=== PATIENT | male | born 1980 | race African-American/Black ===

== ENCOUNTER 2025-08-16 09:04 | Emergency (ER) | payer OTHER ==
[~2025-08-16] VITALS: Ht 177.8 cm; Wt 83.0 kg
[2025-08-16 09:12] VITALS: O2SAT 97
[2025-08-16] MEDS ORDERED: KETOROLAC 30MG/ML VIAL IM ONE (10:15)
[2025-08-16] MEDS ORDERED: ACETAMINOPHEN 325MG TABLET PO ONE (10:15)
[2025-08-16] MEDS ORDERED: PENICILLIN G BENZATHINE 1,200,000 UNITS/2ML SYR IM ONE (10:30)
[2025-08-16] MEDS ORDERED: DEXAMETHASONE 10 MG/ML VIAL IM ONE (10:30)
[2025-08-16] MEDS: ACETAMINOPHEN 500MG TABLET PO NR (11:06)
[2025-08-16] MEDS: DEXAMETHASONE 10 MG/ML VIAL IM NR (11:06)
[2025-08-16] MEDS: PENICILLIN G BENZATHINE 2,400,000 UNITS/4ML SYR IM NR (11:07)
[2025-08-16] MEDS: KETOROLAC 30MG/ML VIAL IM NR (11:07)
[2025-08-16 11:16] VITALS: BP 138/87; PULSE 99; RESP 17; TEMP 37.3; O2SAT 97
== END 2025-08-16 11:17 | disposition home or self-care (01) ==
LOC: ER 09:14
DX: J02.9 Acute pharyngitis, unspecified (principal)
CPT/HCPCS: 99284; 96372; J0561; J1885; J1100